=== PATIENT | male | born 1965 | race American Indian/Alaskan Native ===

== ENCOUNTER 2021-09-15 13:28 | Emergency (ER) | payer SELFPAY ==
[2021-09-15] MEDS ORDERED: TETANUS,DIPH,PERTUSS(ACELL) VACCINE 0.5 ML SYRINGE IM ONE (17:08)
--- NOTE | 2021-09-15 18:04 | XRay Report ---
RIGHT HAND 3 VIEWS INDICATION / CLINICAL INFORMATION: Foreign body in right hand. Splinter between first and second digits. COMPARISON: None available. FINDINGS: BONES and JOINT(S): No acute fracture or subluxation. No significant arthritis. SOFT TISSUES: No radiopaque foreign body or other significant abnormality. ADDITIONAL FINDINGS: None. IMPRESSION: No radiopaque foreign body or other significant abnormality of the right hand. Signer Name: Luis Juárez MD Signed: 09/15/2021 5:59 PM Workstation Name: [id number]
[2021-09-15 18:50] VITALS: BP 138/78
--- NOTE | 2021-09-15 19:47 | Emergency Department Report ---
- General Chief complaint: Skin/Abscess/Foreign Body Stated complaint: SPLINTER IN HAND Time Seen by Provider: 09/15/21 17:07 Source: patient Mode of arrival: Ambulatory Limitations: No Limitations - History of Present Illness Initial comments: 56-year-old male presents emerged department complaining of hand pain with suspicion of retained foreign body from a piece of wood. States he was handling a piece of wood when he felt a sharp pain to the palm of his hand and noticed a piece of wood sliver sticking out. He attempted to remove the wood sliver and it broke off and initially thought he had removed all of the foreign body but then felt a lump in his hand with progressive worsening pain and some swelling and went and realized that there was a large portion of the was still residing in his hand. The injury occurred a few hours prior to arrival he reports dull throbbing pain but no discharge from the wound. No fever, chills, sweats. Pain is worse with palpation and range of motion and certain positions. MD complaint: foreign body Associated symptoms: denies other symptoms Treatments Prior to Arrival: none - Related Data Previous Rx's Medication Instructions Recorded Last Taken Type cephALEXin [Keflex] 500 mg PO Q8HR #21 cap 09/15/21 Unknown Rx Allergies Allergy/AdvReac Type Severity Reaction Status Date / Time No Known Allergies Allergy Verified 09/15/21 13:35 Abscess Boil HPI - HPI Chief Complaint: Skin/Abscess/Foreign Body Stated Complaint: SPLINTER IN HAND Time Seen by Provider: 09/15/21 17:07 Home Medications: Previous Rx's Medication Instructions Recorded Last Taken Type cephALEXin [Keflex] 500 mg PO Q8HR #21 cap 09/15/21 Unknown Rx Allergies/Adverse Reactions: Allergies Allergy/AdvReac Type Severity Reaction Status Date / Time No Known Allergies Allergy Verified 09/15/21 13:35 ED Review of Systems ROS: Stated complaint: SPLINTER IN HAND Other details as noted in HPI Comment: All other systems reviewed and negative ED Past Medical Hx - Past Medical History Previous Medical History?: No - Surgical History Past Surgical History?: No - Social History Smoking Status: Unknown if ever smoked - Medications Home Medications: Home Medications Medication Instructions Recorded Confirmed Last Taken Type cephALEXin [Keflex] 500 mg PO Q8HR #21 cap 09/15/21 Unknown Rx ED Physical Exam - General Limitations: No Limitations - ENT ENT exam: Present: normal exam, normal orophraynx - Neck Neck exam: Present: normal inspection - Cardiovascular Cardiovascular Exam: Present: regular rate, normal rhythm - Extremities Exam Extremities exam: Present: tenderness (Palm of the hand in the area of the thenar eminence to the proximal region. Puncture site is noted with a indurations hard nodule suggestive of a foreign body sliver. This foreign body sliver hardness is also appreciated to the dorsum of the hand just near the base of the thumb.), normal capillary refill, joint swelling. Absent: calf tendern ess - Back Exam Back exam: Absent: normal inspection - Neurological Exam Neurological exam: Present: alert, altered, oriented X3, CN II-XII intact ED Course Vital Signs 09/15/21 09/15/21 13:38 18:48 Temperature 98.6 F Pulse Rate 68 75 Respiratory 18 Rate Blood Pressure 146/77 138/78 O2 Sat by Pulse 97 97 Oximetry ED Medical Decision Making - Radiology Data Radiology results: report reviewed X-ray shows no osseous injuries no evidence of any retained foreign body [facility] [address] [place] [address] XRay Report Signed Patient: JESSY CHAPA MR#: [id number] : 1965 Acct:[id number] Age/Sex: 56 / M ADM Date: 09/15/21 Loc: ED Attending Dr: Ordering Physician: ZENAIDA ROMAN Date of Service: 09/15/21 Procedure(s): XR hand 3+V RT Accession Number(s): [id number] cc: ZENAIDA ROMAN Fluoro Time In Minutes: RIGHT HAND 3 VIEWS INDICATION / CLINICAL INFORMATION: Foreign body in right hand. Splinter between first and second digits. COMPARISON: None available. FINDINGS: BONES and JOINT(S): No acute fracture or subluxation. No significant arthritis. SOFT TISSUES: No radiopaque foreign body or other significant abnormality. ADDITIONAL FINDINGS: None. IMPRESSION: No radiopaque foreign body or other significant abnormality of the right hand. Signer Name: Luis Juárez MD Signed: 09/15/2021 5:59 PM Workstation Name: [id number] Transcribed By: MN Dictated By: Luis Juárez MD Electronically Authenticated By: Luis Juárez MD Signed Date/Time: 09/15/211758 DD/ 57 TD/TT: - Medical Decision Making Foreign body was not visualized on the x-ray. The wound was prepped and draped in sterile fashion as needed she with 2% lidocaine with 15 scalpel blade was used to make an incision over the puncture wound site in the area of the hardness. The area was probed with a blunt instrument and a foreign body was located. Pair curved Kellys was used to excise the foreign bodies in entirety and revealed a wooden splinter at 3 cm in length the procedure was tolerated well the wound was irrigated and dressed with sterile bandage: Critical care attestation.: If time is entered above; I have spent that time in minutes in the direct care of this critically ill patient, excluding procedure time. ED Disposition Clinical Impression: Foreign body hand, Puncture wound, hand Disposition: 01 HOME / SELF CARE / HOMELESS Is pt being admited?: No Does the pt Need Aspirin: No Condition: Stable Instructions: Puncture Wound, Sutured Wound Care, [id number] Additional Instructions: F/u in 10 days to be evaluated for possible suture removal Prescriptions: cephALEXin [Keflex] 500 mg PO Q8HR #21 cap Referrals: PRIMARY CARE, [Referring] - 3-5 Days
== END 2021-09-15 18:50 | disposition home or self-care (01) ==
LOC: ED 13:28
DX: S61.449A Puncture wound with foreign body of unspecified hand, initial encounter (principal); X58.XXXA Exposure to other specified factors, initial encounter; Y93.89 Activity, other specified; Y92.89 Other specified places as the place of occurrence of the external cause; Y99.8 Other external cause status
CPT/HCPCS: 90471; 90715; 99283